=== PATIENT | male | born 1970 | race Two or more races ===

== ENCOUNTER → 2024-02-12 | Outpatient (CLI) | payer MEDICAID, SELFPAY ==
--- NOTE | 2024-02-12 13:00 | XR_ITS ---
Examination: Abdomen sonogram, complete Date and time of exam: February 12, 2024 1318 hours INDICATIONS: Elevated liver enzymes on outside laboratory examination one month ago. Technique: Multiple real-time grayscale transabdominal sonographic images of the abdomen have been obtained. Findings: Contracted gallbladder No gallstones Gallbladder wall 0.4 cm no edema Common bile duct 0.3 cm Pancreatic head 2.9 cm Aorta not enlarged Liver 14.6 cm fatty infiltration irregular contour no focal liver lesions Normal hepatopedal portal venous flow Patent IVC Right kidney 12.9 x 7.7 x 8.6 cm renal cortex 1.9 cm Left kidney 12.0 x 6.6 x 6.0 cm cortex 2.0 cm Mild renal parenchymal scar formation No hydronephrosis Mild splenomegaly 13.7 cm IMPRESSION: Recommend repeating the gallbladder portion of the study with fasting Fatty liver with irregular contour, suspect primary hepatocellular disease Mild splenomegaly Mild bilateral renal parenchymal scar formation
== END | disposition home or self-care (01) ==
PROVIDERS: Referring Provider Internal Medicine Gastroenterology; Visit Provider Internal Medicine Gastroenterology
DX: K76.0 Fatty (change of) liver, not elsewhere classified (principal); N28.89 Other specified disorders of kidney and ureter; R16.1 Splenomegaly, not elsewhere classified
CPT/HCPCS: 76700

== ENCOUNTER 2024-03-24 09:39 | Emergency (ER) | payer MEDICAID, SELFPAY ==
[2024-03-24 09:39] VITALS: BMI 29.0
[2024-03-24 09:47] VITALS: BP 138/89; PULSE 76; RESP 16; TEMP 36.8; O2SAT 98
--- NOTE | 2024-03-24 09:53 | XR_ITS ---
Examination: Hand, right 3 views Technique: Hand AP, oblique, lateral 3 views Date and time of exam: March 24, 2024 1014 hours INDICATIONS: Right hand pain beginning 3 days ago. FINDINGS: No acute fracture No dislocation No erosive or other significant arthritic change Mild osteoarthritis distal interphalangeal joints and interphalangeal joint first digit IMPRESSION: Mild osteoarthritis
--- NOTE | 2024-03-24 10:10 | EDNOTE_ITS ---
<Statement entered by Laine Moran MD - 03/24/24 13:23> As co-signing physician, I was present and available for consult prn. I concur with the plan and care as documented by the midlevel provider. Upper Extremity Injury RME/HPI General Chief Complaint: Extremity Injury, Upper Stated Complaint: RIGHT HAND PAIN, SWELLING Time Seen by Provider: 03/24/24 09:48 Source: patient Arrival date/time: 03/24/24 09:39 53-year-old male with no known medical history presents to the emergency room with a chief complaint of tenderness and swelling to his right thumb x 3 day Mode of arrival: ambulatory Limitations: no limitations Related Data Home Medications ?Medication ?Instructions ?Recorded ?Confirmed cyclobenzaprine 5 mg tablet 5 mg PO TID PRN Muscle Spa sm 11/24/22 11/24/22 lisinopril 20 1 tab PO QDAY 11/24/2211/24 mg-hydrochlorothiazide 12.5 mg tablet Previous Rx's ?Medication ?Instructions ?Recorded naproxen 500 mg tablet 500 mg PO BID PRN pain #20 t abs 03/24/24 Allergies Allergy/AdvReac Type Severity Reaction Status Date / Time No Known Allergies Allergy Verified 03/24/24 09:41 ED Exam General Limitations: Present no limitations Course Quality Measures none Orders Category Date Time Status XR hand comp RT min 3V Stat Exams 03/24/24 09:53 Completed Vital Signs Vital signs: Vital Signs Temperature 98.2 F 03/24/24 09:47 Pulse Rate 76 03/24/24 09:47 Respiratory Rate 16 03/24/24 09:47 Blood Pressure 138/89 H 03/24/24 09:47 Pulse Oximetry (%) 98 03/24/24 09:47 Oxygen Delivery Method Room Air 03/24/24 09:47 Extremity Injury MDM Narrative MDM Narrative:: 53-year-old male with no known medical history presents to the emergency room with a chief complaint of tenderness and swelling to his right thumb x 3 day Patient is hemodynamically stable and in no apparent distress Physical examination shows tenderness and pain to the right thumb. 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 Patient also states that 3 days ago he injured his hand while installing a cabinet. Patient has full range of motion to the right thumb and to all extremities. X-ray was completed and was negative for any acute fracture, dislocation, and only found mild osteoarthritis. Patient was discharged and educated to follow-up with primary care provider and return to the emergency room for any evidence of worsening signs or symptoms Patient data External records reviewed:: [facility] previous records Clinical information provided by:: patient Social determinants that could affect healthcare access:: none Patient has the following chronic illnesses:: No chronic illness How is presenting disease/condition affected by chronic disease/condition?: no chronic disease Evaluation data The following diagnostics were reviewed and interpreted by me:: lab results and radiology exam(s) Lab and/or radiology exams considered but not ordered:: Labs and radiology exams considered and ordered Interpretation Summary: Hand [id number]: No acute fracture No dislocation No erosive or other significant arthritic change Mild osteoarthritis distal interphalangeal joints and interphalangeal joint first digit IMPRESSION: Mild osteoarthritis Medications / Prescriptions Medications or Prescriptions considered but not ordered:: Medication given Medication administrations:: Medication given Consultations Consultation(s) initiated? (list below): No Diagnosis Upper Extremity Injury Differential Diagnosis: finger sprain, dislocation of finger and fracture of hand Most likely diagnosis given after review of the tests above:: Osteoarthritis Admission Indicated Admission indicated?: not indicated Admission Request Was there a request for admission?: No Disposition Plan Disposition Plan: Discharge Discharge Attestation Discharge Attestation: The patient and all family members were given an opportunity to ask questions and understood the discharge instructions. Discharge instructions specifically effects, indications for sooner follow up or return to the emergency department, and the expected course of current diagnosis. Patient condition: Stable Discharge Plan Plan Patient Disposition: HOME (Self Care) Disposition Comment: Stable Prescriptions/Referrals Prescriptions/Med Rec: New naproxen 500 mg tablet 500 mg PO BID PRN (Reason: pain) Qty: 20 0RF No Action lisinopril-hydrochlorothiazide 20-12.5 mg tablet 1 tab PO QDAY Patient Comments: take 1 tablet by mouth once daily cyclobenzaprine 5 mg Tablet 5 mg PO TID PRN (Reason: Muscle Spasm) Referrals: Jh Robins MD [Primary Care Provider] - In 1 week Problem List Clinical Impression: Osteoarthritis Patient/Caregiver Discharge Instructions Education Materials: What Is Osteoarthritis?, Osteoarthritis Medicine, ED Osteoarthritis Additional Instructions: Please follow-up with your primary care provider in the next 24 to 48 hours. Your hand x-ray was negative for any acute fracture or dislocation. Your x-ray shows osteoarthritis. Please follow-up with your primary care provider for further management of this chronic condition. For any evidence of worsening signs or symptoms return to the emergency room immediately Print Language: Estonian Stand Alone Forms: [place] Award Info., Work/School Release, Patient Portal Info Letter PA/STEPDOWN NURSE Supervising Physician PA/STEPDOWN NURSE Supervising Physician: Dr. MORAN
== END 2024-03-24 11:01 | disposition home or self-care (01) ==
PROVIDERS: Emergency Provider Emergency Medicine; PCP Student in an Organized Health Care Education/Training Program
DX: M19.041 Primary osteoarthritis, right hand (principal)
CPT/HCPCS: 73130; 99283